=== PATIENT | male | born 1950 | race Caucasian/White ===

== ENCOUNTER 2020-12-14 12:27 | Emergency (ER) | payer MEDICARE, SELFPAY ==
[2020-12-14 12:39] VITALS: BP 134/60; PULSE 94; RESP 18; TEMP 36.4; O2SAT 98
--- NOTE | 2020-12-14 12:59 | ED.WOUNDLAC ---
HPI - Wound/Laceration General Chief Complaint: Wound/Laceration Stated Complaint: cut right thumb Time Seen by Provider: 12/14/20 12:45 Source: patient and RN notes reviewed Mode of arrival: ambulatory Limitations: no limitations History of Present Illness HPI narrative: 70-year-old male who presents to [facility] with complaints of laceration to the alcocer tip of his right thumb from able saw which occurred about 30 minutes prior to arrival to clinic. Wound edges are jagged along distal area of right thumb with no nail involvement note. Patient states that his tetanus is not up to date so will be updated prior to discharge from clinic. Laceration 2.5 cm linear but irregular edges noted, patient states that pain is tolerable at this time. Onset (ago): minute(s) (30 minutes) Location: other (Right) Extremity Location: Right: hand (distal alcocer tip of right thumb) Place: home Patient tetanus UTD: No Context: accidental Associated symptoms: pain Treatments prior to arrival: bandage Related Data Home Medications Medication Instructions Recorded Confirmed Adult Low Dose Aspirin 12/14/20 Adults Multivitamin 12/14/20 cholecalciferol (vitamin D3) 12/14/20 empagliflozin [Jardiance] mg 12/14/20 fiber 12/14/20 [id number] glycn-C 12/14/20 loperamide 12/14/20 losartan 12/14/20 metformin mg PO 12/14/20 simvastatin mg 12/14/20 triamterene-hydrochlorothiazid cap 12/14/20 vitamin B complex 12/14/20 vitamin E 12/14/20 Allergies Allergy/AdvReac Type Severity Reaction Status Date / Time Penicillins Allergy Unknown Unverified 02/02/15 18:40 darvocet Allergy Unknown Uncoded 02/02/15 18:40 Review of Systems Review of Systems: Narrative: CONSTITUTIONAL: Denies fever, chills, or sweats. EYES: Denies visual changes, redness, or discharge. ENT: Denies rhinorrhea, congestion, sore throat, or otalgia. CARDIOVASCULAR: Denies chest pain, palpitations, or edema. RESPIRATORY: Denies cough or dyspnea. GASTROINTESTINAL: Denies abdominal pain, nausea, vomiting, or diarrhea. GENITOURINARY: Denies dysuria or hematuria. SKIN: Denies rash or itching.positive for laceration to the distal tip of right thumb alcocer area with no injury to nail, strong right radial pulse, no acute bleeding at this time, patient had applied pressure dressing to site prior to arrival. Laceration to alcocer distal tip of right thumb which is 2.5cm in length which is linear but jagged irregular edges. MUSCULOSKELETAL: Denies back pain, joint pain, or myalgia. NEUROLOGIC: Denies headache, numbness, or weakness. PSYCHIATRIC: Denies anxiety or depression. All systems reviewed & are unremarkable except as noted in HPI and below PMFSH Past Medical History Medical History (Updated 12/14/20 @ 15:34 by Iman Jimenez NP) Colon cancer chemo and radiation after surgery Diabetes Elevated cholesterol Hypertension Surgical History Surgical History (Updated 12/14/20 @ 15:36 by Iman Jimenez NP) H/O resection of liver mets from colon cancer History of appendectomy History of colon resection X2 Family History Family History (Updated 12/14/20 @ 15:37 by Iman Jimenez NP) Mother Cerebrovascular accident Father Cerebrovascular accident Heart disease Grandparent Diabetes mellitus Sibling Thyroid disease Social History Social History (Updated 12/14/20 @ 13:49 by Iman Jimenez NP) Smoking status: Former smoker Tobacco type: cigars Additional smoking assessment comments: quit approximately 6 years ago Alcohol intake: current Alcohol use details: rare social Substance use: never Living arrangements: alone Gender identity (if verbalized by the patient): Male Comments At time of signature, agree with nursing past medical, surgical, social and family history. There is no relevant family history pertinent to the presenting complaint Exam Narrative: Exam Narrative: GENERAL: Well-appearing, we
[2020-12-14] MEDS: TETANUS,DIPHTHERIA,AC PERTUSSIS ADULT (0.5 ML) BOOSTRIX IM (13:09)
--- NOTE | 2020-12-14 13:34 | PC.NURSE ---
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
== END 2020-12-14 14:00 | disposition home or self-care (01) ==
PROVIDERS: Emergency Provider Registered Nurse
DX: S61.011A Laceration without foreign body of right thumb without damage to nail, initial encounter (principal); W27.0XXA Contact with workbench tool, initial encounter; Z23 Encounter for immunization; Z87.891 Personal history of nicotine dependence; E11.9 Type 2 diabetes mellitus without complications; E78.00 Pure hypercholesterolemia, unspecified; I10 Essential (primary) hypertension; Z85.038 Personal history of other malignant neoplasm of large intestine; Z85.05 Personal history of malignant neoplasm of liver
CPT/HCPCS: 12041; 90471; 90715; 99213; G0463

== ENCOUNTER 2020-12-28 10:59 | Emergency (ER) | payer MEDICARE, SELFPAY ==
[2020-12-28 11:29] VITALS: BP 133/69; PULSE 85; RESP 17; TEMP 36.4; O2SAT 98
--- NOTE | 2020-12-28 11:38 | ED.SKABFB ---
HPI - Skin/Abscess/Foreign Bdy General Chief complaint: Skin/Abscess/Foreign Body Stated complaint: Stitches removal Time Seen by Provider: 12/28/20 11:39 Source: patient and RN notes reviewed Mode of arrival: ambulatory Limitations: no limitations History of Present Illness HPI narrative: 70-year-old male presents for suture removal. Reports he lacerated his right first digit on a power tool on December 14. Reports he received 6 sutures. Reports wound is healing appropriately, is not gaping, has no drainage, no redness, no pain. Reports he has been using antibiotic ointment and keeping the wound covered. MD complaint: other (Suture removal) Related Data Home Medications Medication Instructions Recorded Confirmed Adult Low Dose Aspirin 12/14/20 Adults Multivitamin 12/14/20 cholecalciferol (vitamin D3) 12/14/20 empagliflozin [Jardiance] mg 12/14/20 fiber 12/14/20 nhyyrsan-csygmsiwzu-ao glycn-C 12/14/20 loperamide 12/14/20 losartan 12/14/20 metformin mg PO 12/14/20 simvastatin mg 12/14/20 triamterene-hydrochlorothiazid cap 12/14/20 vitamin B complex 12/14/20 vitamin E 12/14/20 Allergies Allergy/AdvReac Type Severity Reaction Status Date / Time Penicillins Allergy Unknown Unverified 12/28/20 11:41 darvocet Allergy Unknown Uncoded 12/28/20 11:41 Review of Systems Review of Systems: Narrative: CONSTITUTIONAL: Denies malaise, chills, sweats, or fever. SKIN: Reports sutures to the first digit of the right hand, denies redness, swelling, pain, drainage MUSCULOSKELETAL: Denies musculoskeletal pain All systems reviewed & are unremarkable except as noted in HPI and below PMFSH Past Medical History Medical History (Updated 12/28/20 @ 11:53 by Delfina Christian NP) Colon cancer chemo and radiation after surgery Diabetes Elevated cholesterol Hypertension Surgical History Surgical History (Updated 12/14/20 @ 15:36 by Iman Jimenez NP) H/O resection of liver mets from colon cancer History of appendectomy History of colon resection X2 Family History Family History (Updated 12/14/20 @ 15:37 by Iman Jimenez NP) Mother Cerebrovascular accident Father Cerebrovascular accident Heart disease Grandparent Diabetes mellitus Sibling Thyroid disease Social History Social History (Updated 12/14/20 @ 13:49 by Iman Jimenez NP) Smoking status: Former smoker Tobacco type: cigars Additional smoking assessment comments: quit approximately 6 years ago Alcohol intake: current Substance use: never Gender identity (if verbalized by the patient): Male Comments At time of signature, agree with nursing past medical, surgical, social and family history. There is no relevant family history pertinent to the presenting complaint Exam Narrative: Exam Narrative: GENERAL: Well-appearing, well-nourished, and in no acute distress. HEAD: Normocephalic, atraumatic. EYES: PERRLA, conjunctivae clear ENT: Mucous membranes moist. NECK: Supple. No lymphadenopathy CHEST: Clear to auscultation. No respiratory distress. HEART: Regular rate and rhythm. SKIN: Warm, dry. 6 intact sutures noted to the distal end of the first digit of the right hand without surrounding erythema, edema, induration, drainage NEURO: Alert and oriented x3. PSYCH: Normal mood and affect Course Course Emergency Course: Patient is aware of diagnosis, understands and agrees to treatment plan. Anticipatory guidance given. Patient agrees to follow-up as directed and is aware of reasons to seek care at the emergency department. Portions of this record may have been created with voice recognition software Vital Signs Vital signs: Vital Signs Temperature 97.5 F L 12/28/20 11:29 Pulse Rate 85 12/28/20 11:29 Respiratory Rate 17 12/28/20 11:29 Blood Pressure 133/69 12/28/20 11:29 Pulse Oximetry 98 12/28/20 11:29 Temperature 97.5 F L 12/28/20 11:29 Pulse Rate 85 12/28/20 11:29 Resp
== END 2020-12-28 11:55 | disposition home or self-care (01) ==
PROVIDERS: Emergency Provider Nurse Practitioner
DX: S61.210D Laceration without foreign body of right index finger without damage to nail, subsequent encounter (principal); W27.8XXD Contact with other nonpowered hand tool, subsequent encounter; Z87.891 Personal history of nicotine dependence; E11.9 Type 2 diabetes mellitus without complications; E78.00 Pure hypercholesterolemia, unspecified; I10 Essential (primary) hypertension; Z85.038 Personal history of other malignant neoplasm of large intestine; Z92.21 Personal history of antineoplastic chemotherapy; Z92.3 Personal history of irradiation
CPT/HCPCS: 99211; G0463